=== PATIENT | female | born 1980 | race African-American/Black ===

== ENCOUNTER 2016-12-30 21:21 | Emergency (ER) | payer MEDICAID ==
[~2016-12-30] VITALS: Ht 180.3 cm; Wt 170.1 kg
[~2016-12-30 21:21] MED LIST: ATORVASTATIN CA20 MG ORAL; CLOPIDOGREL75 MG ORAL; FIORICET1 EA ORAL; GABAPENTIN600 MG ORAL; HUMULIN 70100 UNIT/3 SQ; LOSARTAN POTASS25 MG ORAL; NITROFURANTOIN100 M2 ORAL; SOMA350 MG PO
[2016-12-30 21:45] VITALS: BP 117/86
[2016-12-30] MEDS ORDERED: SUMATRIPTAN SU100 MG PO (21:52)
[2016-12-30] MEDS ORDERED: BUTALB-ACETAMI1 EAC3 PO (21:52)
[2016-12-30] MEDS ORDERED: Metoclopramide 10mg/2ml Inj IVP ONE (22:15)
[2016-12-30] MEDS ORDERED: DiphenhydrAMINE 50mg/ml Inj IVP ONE (22:15)
[2016-12-30] MEDS ORDERED: Ketorolac 30mg Inj IV ONE (22:15)
--- NOTE | 2016-12-30 23:48 | Emergency Room Report ---
History of Present Illness General Chief Complaint: Headache Source: Patient Present Illness HPI 36 YO F with known migraines who follows with Neurologist presents with 5 days intermittent right sided headache associated with nausea, photophobia, sensitivity to smell. Neurologist prescribed sumatripthan, usually works, didnt work this week as well. Has had CT and MRI previously which didnt show mass/tumor or other abnormality. Denies fever/chills, neck stiffness, sick contacts or rash. Allergies: Coded Allergies: No Known Allergies (Unverified , 10/17/16) Patient History Past Medical History: migraines Past Surgical History: none Pertinent Family History: none Social History: Denies: alcohol use, drug use, smoking Last Menstrual Period: 12/05/16 Now: No Immunizations: UTD Reviewed Nursing Documentation: PMH: Agreed, PSxH: Agreed Nursing Documentation-PMH Hx Hypertension: Yes Hx Diabetes: Yes Hx Cerebrovascular Accident: Yes - 2014 Review of Systems All Other Systems: negative except mentioned in HPI Physical Exam Vital Signs Date Time Temp Pulse Resp B/P Pulse Ox O2 Delivery O2 Flow Rate FiO2 12/30/16 21:35 97.0 99 17 117/86 98 Room Air Sp02 EP Interpretation: reviewed, normal General Appearance: normal inspection, well appearing, alert, GCS 15, non-toxic , mild distress Head: normocephalic, atraumatic Eyes: bilateral eye EOMI, bilateral eye PERRL ENT: normal ENT inspection, hearing grossly normal, normal voice Neck: normal inspection, full range of motion, supple, no bony tend Respiratory: normal inspection, lungs clear, normal breath sounds, no respiratory distress, no retraction, no wheezing Cardiovascular #1: regular rate, rhythm, no edema Gastrointestinal: normal inspection, normal bowel sounds, non tender, soft, no guarding, no hernia Genitourinary: no CVA tenderness Musculoskeletal: normal inspection, back normal, normal range of motion, Trista' s Sign negative Neurologic: normal inspection, alert, oriented x3, responsive, 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 Afebrile. VSS. No acute neuro focal deficits. Low suspicion for SAH or meningitis given well apperance, duration of symptoms, no meningismus Improved with IV toradol, reglan, benadryl and IVF Will Rx with Reglan Recommend Neuro followup DC home Last Vital Signs Date Time Temp Pulse Resp B/P Pulse Ox O2 Delivery O2 Flow Rate FiO2 12/30/16 22:57 97.0 12/30/16 21:45 76 17 117/86 98 Room Air Status: improved Disposition: HOME, SELF-CARE Referrals: [facility] (PCP) HANNA CRUZ M.D. Dec 30, 2016 23:48
[2016-12-30] MEDS ORDERED: REGLAN10 M1 ORAL (23:57)
[2016-12-31] VITALS: BP 115/83
[2016-12-31 00:10] VITALS: BP 115/83
== END 2016-12-31 00:10 | disposition home or self-care (01) ==
LOC: EMR 21:56
DX: G43.909 Migraine, unspecified, not intractable, without status migrainosus (principal); R11.0 Nausea; H53.149 Visual discomfort, unspecified; I10 Essential (primary) hypertension; E11.9 Type 2 diabetes mellitus without complications
CPT/HCPCS: 96374; 96375; 99284; J1200; J1885; J2765

== ENCOUNTER → 2017-03-05 | Emergency (ER) | payer MEDICAID ==
[~2017-03-05] VITALS: Ht 180.3 cm; Wt 168.3 kg
[~2017-03-05] MED LIST changes: +BUTALB-ACETAMI1 EAC3 PO; +Clindamycin 900mg 50 ML IVPB ONE; +Morphine Sulfate 4mg/ml Inj IVP ONE; +REGLAN10 M1 ORAL; +SUMATRIPTAN SU100 MG PO
--- NOTE | 2017-03-05 23:06 | Emergency Room Report ---
History of Present Illness General Chief Complaint: Edema Source: Patient Present Illness HPI The patient presents with worsening leg edema and pain. She is having difficulty ambulating at this time and is called in to work for 3 days. She started on Lasix by her doctors several days ago. Has not led to a change in the amount of edema that she has. She states that she has a recent diagnosis of kidney dysfunction. The patient denies any fevers, chest pain, shortness of breath, cough, hemoptysis or previous blood clot. The patient states that she's had a stroke in the past and is taking Plavix. The pain is so severe she has missed work for 3 days as she cannot ambulate. Allergies: Coded Allergies: No Known Allergies (Unverified , 10/17/16) Patient History Past Medical History: see triage record Social History: Denies: smoking Social History Narrative employed Last Menstrual Period: 02/09/17 Now: No Reviewed Nursing Documentation: PMH: Agreed, PSxH: Agreed Nursing Documentation-PMH Hx Hypertension: Yes Hx Diabetes: Yes Hx Cerebrovascular Accident: Yes - 2014 Review of Systems All Other Systems: negative except mentioned in HPI Physical Exam Vital Signs Date Time Temp Pulse Resp B/P Pulse Ox O2 Delivery O2 Flow Rate FiO2 03/05/17 22:03 97.3 91 15 133/71 96 Room Air Sp02 EP Interpretation: reviewed, normal General Appearance: well appearing, no apparent distress, GCS 15 Head: normocephalic Eyes: bilateral eye PERRL, bilateral eye normal inspection ENT: moist mucus membranes Neck: supple Respiratory: lungs clear, normal breath sounds Cardiovascular #1: regular rate, rhythm Cardiovascular #2: 2+ radial (R) Gastrointestinal: normal bowel sounds, non tender, soft, overweight Musculoskeletal: digits/nails normal, calf tenderness, inflammation, swelling Neurologic: alert, oriented x3, grossly normal Skin: normal inspection, warm/dry, other - rhinophyma Medical Decision Making Diagnostic Impression: Primary Impression: Edema Qualified Codes: R60.9 - Edema, unspecified Additional Impression: Cellulitis Qualified Codes: L03.119 - Cellulitis of unspecified part of limb ER Course The patient presents with bilateral edema it's painful periods not responding to Lasix. She claims that she has renal failure also. Differential includes deteriorating renal function, cellulitis, DVT amongst others. Laboratory will be undertaken and EKG and chest x-ray also. The patient will be treated with IV Lasix and also given analgesia. Labs are significant for negative d-dimer, normal BNP. Her does have a slightly elevated WBC suggested this might be infectious in etiology. The fact that the patient is unable to ambulate she needs to have hospitalization for treatment and further evaluation as to the etiology of this. The patient was presented to Dr. Jansen who accepted the patient in transfer. The patient is improved however still has pain. She has been diuresing with Lasix we gave her. Addition antibiotics were begun. Laboratory Tests Test 03/05/17 22:20 03/05/17 22:42 Urine HCG, Qualitative Negative Urine Opiates Screen Negative (NEGATIVE) Urine Barbiturates Screen Positive (NEGATIVE) H Phencyclidine (PCP) Screen Negative (NEGATIVE) Urine Amphetamines Screen Negative (NEGATIVE) Urine Benzodiazepines Screen Negative (NEGATIVE) Urine Cocaine Screen Negative (NEGATIVE) Urine Marijuana (THC) Screen Positive (NEGATIVE) H White Blood Count 11.8 K/UL (4.8-10.8) H Red Blood Count 4.40 M/UL (4.20-5.40) Hemoglobin 13.5 G/DL (12.0-16.0) Hematocrit 39.2 % (37.0-47.0) Mean Corpuscular Volume 89 FL (80-99) Mean Corpuscular Hemoglobin 30.7 PG (27.0-31.0) Mean Corpuscular Hemoglobin Concent 34.5 G/DL (32.0-36.0) Red Cell Distribution Width 12.7 % (11.6-14.8) Platelet Count 294 K/UL (150-450) Mean Platelet Volume 7.2 FL (6.5-10.1) Neutrophils (%) (Auto) 38.8 % (45.0-75.0) L Lymphocytes (%) (Auto) 47.2 % (20.0-45.0) H Monocytes (%) (Auto) 4.0 % (1.0-10.0) Eosinophils (%) (Auto) 8.5 % (0.0-3.0) H Basophils (%) (Auto) 1.5 % (0.0-2.0) Prothrombin Time 9.2 SEC (9.30-11.50) L Prothrombin Time INR 0.9 (0.9-1.1) PTT 21 SEC (23-33) L D-Dimer 337 ng/mL (<500) Sodium Level 136 mEQ/L (135-145) Potassium Level 4.7 mEQ/L (3.4-4.9) Chloride Level 96 mEQ/L (98-107) L Carbon Dioxide Level 26 mEQ/L (20-30) Anion Gap 14 (5-15) Blood Urea Nitrogen 13 mg/dL (7-23) Creatinine 1.0 mg/dL (0.5-0.9) H Estimate Glomerular Filtration Rate > 60 mL/min (>60) Glucose Level 194 mg/dL (74-106) H Calcium Level 9.1 mg/dL (8.6-10.2) Total Bilirubin < 0.2 mg/dL (0.0-1.2) Aspartate Amino Transferase (AST) 42 U/L (5-40) H Alanine Aminotransferase (ALT) 18 U/L (3-33) Alkaline Phosphatase 81 U/L (35-104) Total Creatine Kinase 362 U/L (26-140) H Troponin I < 0.30 ng/mL (<=0.30) Pro-B-Type Natriuretic Peptide 53 pg/mL (0-125) Total Protein 7.1 g/dL (6.6-8.7) Albumin 3.5 g/dL (3.5-5.2) Globulin 3.6 g/dL Albumin/Globulin Ratio 0.9 (1.0-2.7) L EKG Diagnostic Results Rate: normal Rhythm: NSR ST Segments: no acute changes Rhythm Strip Diag. Results EP Interpretation: yes Rhythm: NSR, no PVC's, no ectopy Chest X-Ray Diagnostic Results EP Interpretation: Yes Findings: no consolidation, no effusion, no pneumothorax, no acute cardiopulmonary disease Number of Views: 1 Last Vital Signs Date Time Temp Pulse Resp B/P Pulse Ox O2 Delivery O2 Flow Rate FiO2 03/06/17 06:03 98.4 88 19 121/70 98 Room Air Status: improved Disposition: XFER SHT-TRM HOSP Condition: Serious - but stable for transfer Jn Lo M.D. Mar 05, 2017 23:06
[2017-03-05 23:07] LABS: BASOPHILS % (AUTO) 1.5 % (0.0-2.0); EOSINOPHILS % (AUTO) 8.5 % (0.0-3.0); LYMPHOCYTES % (AUTO) 47.2 % (20.0-45.0); MEAN CORPUSCULAR HEMOGLOBIN 30.7 PG (27.0-31.0); MEAN CORPUSCULAR HGB CONC 34.5 G/DL (32.0-36.0); MEAN CORPUSCULAR VOLUME 89 FL (80-99); MEAN PLATELET VOLUME 7.2 FL (6.5-10.1); NEUTROPHILS % (AUTO) 38.8 % (45.0-75.0); PLATELET COUNT 294 K/UL (150-450); RED CELL DISTRIBUTION WIDTH 12.7 % (11.6-14.8); WHITE BLOOD COUNT 11.8 K/UL (4.8-10.8)
[2017-03-05 23:13] LABS: INR 0.9 (0.9-1.1); PROTHROMBIN TIME 9.2 SEC (9.30-11.50)
[2017-03-05 23:24] LABS: TROPONIN I < 0.30 ng/mL (<=0.30)
[2017-03-05 23:35] LABS: ALANINE AMINOTRANSFERASE 18 U/L (3-33); ALBUMIN/GLOBULIN RATIO 0.9 (1.0-2.7); ANION GAP 14 (5-15); ASPARTATE AMINO TRANSFERASE 42 U/L (5-40); CALCIUM 9.1 mg/dL (8.6-10.2); CARBON DIOXIDE 26 mEQ/L (20-30); CHLORIDE 96 mEQ/L (98-107); GLOMERULAR FILTRATION RATE > 60 mL/min (>60); HEMOLYSIS 243; POTASSIUM 4.7 mEQ/L (3.4-4.9); SODIUM 136 mEQ/L (135-145); TOTAL PROTEIN 7.1 g/dL (6.6-8.7)
[2017-03-05 23:53] VITALS: BP 121/65
[2017-03-06 01:48] VITALS: BP 113/76
[2017-03-06 03:40] VITALS: BP 103/53
[2017-03-06 05:06] VITALS: BP 121/70
[2017-03-06 06:03] VITALS: BP 121/70
--- NOTE | 2017-03-07 09:06 | Diagnostic Imaging Report ---
Indication: CP Technique: XRAY CHEST 1 V Comparison: None. Findings: The patient has taken a poor inspiration. The cardiomediastinal silhouette is normal. The lungs are clear. There is no evidence of pleural fluid. The bony structures are unremarkable. Impression: Poor inspiratory chest. Otherwise grossly negative.
--- NOTE | 2017-03-09 00:26 | Cardiology Report ---
APPROVED REPORT EKG Measurement Heart [id number] Normal sinus rhythm Cannot rule out Anterior infarct, age undetermined Abnormal ECG
== END | disposition short-term general hospital (02) ==
LOC: EMR 23:39 → EDBEDREQSVC 03-06 01:52 → EDBEDREQ 03-06 01:52
DX: R60.9 Edema, unspecified (principal); L03.119 Cellulitis of unspecified part of limb; E11.9 Type 2 diabetes mellitus without complications; I10 Essential (primary) hypertension; Z86.73 Personal history of transient ischemic attack (TIA), and cerebral infarction without residual deficits; Z79.02 Long term (current) use of antithrombotics/antiplatelets
CPT/HCPCS: 36415; 71010; 80053; 80300; 81025; 82550; 83880; 84484; 85025; 85379; 85610; 85730; 93005; 96374; 96375; 99284; J1940; J2270; J2405; S0077

== ENCOUNTER 2017-05-03 18:43 | Emergency (ER) | payer MEDICAID ==
[~2017-05-03] VITALS: Ht 177.8 cm; Wt 171.9 kg
[~2017-05-03 18:43] MED LIST changes: -Clindamycin 900mg 50 ML IVPB ONE; -Morphine Sulfate 4mg/ml Inj IVP ONE
[2017-05-03 19:15] VITALS: BP 135/82
[2017-05-03] MEDS ORDERED: DiphenhydrAMINE 50mg/ml Inj IM ONE (19:45)
[2017-05-03] MEDS ORDERED: Ketorolac 30mg Inj IM ONE (19:45)
[2017-05-03] MEDS ORDERED: Metoclopramide 10mg/2ml Inj IM ONE (19:45)
[2017-05-03] MEDS ORDERED: BENADRYL25 MG ORAL (20:21)
[2017-05-03] MEDS ORDERED: AUGMENTIN 500-1 EACH ORAL (20:21)
[2017-05-03] MEDS ORDERED: REGLAN10 MG ORAL (20:21)
[2017-05-03] MEDS ORDERED: IBUPROFEN600 MG ORAL (20:21)
[2017-05-03 20:40] VITALS: BP 111/80
--- NOTE | 2017-05-03 21:53 | Emergency Room Report ---
History of Present Illness General Chief Complaint: Headache Source: Patient Present Illness [facility] The patient is a 37-year-old female presenting for migraine headache and possible dental infection. The patient states that she was treated for a dental infection 1 month prior with amoxicillin. The patient states that dental pain completely resolved after the course of antibiotics. Pain returned one week prior and is described as a 10 out of 10 dull ache to the right lower jaw. Pain does not radiate. It is worse with touch. She states that this pain has triggered a migraine headache which she often has. The patient states that this feels typical of a migraine headache. She admits to photophobia but denies any nausea or vomiting. Headache described as a 10 out of 10 sharp sensation to the right side and does not radiate. No known provoking relieving factors. She has tried Tylenol at home which has not helped. Denies any other symptoms Allergies: Coded Allergies: No Known Allergies (Unverified , 10/17/16) Patient History Past Medical History: see triage record Pertinent Family History: none Last Menstrual Period: 04/12/17 Now: No Reviewed Nursing Documentation: PMH: Agreed, PSxH: Agreed Nursing Documentation-PMH Past Medical History: No History, Except For Hx Hypertension: Yes Hx Diabetes: Yes Hx Cerebrovascular Accident: Yes - multiple Review of Systems All Other Systems: negative except mentioned in HPI Physical Exam Vital Signs Date Time Temp Pulse Resp B/P Pulse Ox O2 Delivery O2 Flow Rate FiO2 05/03/17 19:08 98.4 95 14 96 Room Air 05/03/17 19:15 135/82 Sp02 EP Interpretation: reviewed, normal General Appearance: no apparent distress, alert, GCS 15, non-toxic Head: normocephalic, atraumatic Eyes: bilateral eye PERRL, bilateral eye normal inspection ENT: hearing grossly normal, normal pharynx, no angioedema, normal voice, uvula midline, other - R lower premolar surrounding erythema and TTP. no fluctuance Neck: full range of motion, supple/symm/no masses Respiratory: chest non-tender, lungs clear, normal breath sounds, speaking full sentences Musculoskeletal: back normal, gait/station normal, normal range of motion, non- tender Neurologic: alert, oriented x3, responsive, motor strength/tone normal, sensory intact, speech normal Psychiatric: judgement/insight normal, memory normal, mood/affect normal, no suicidal/homicidal ideation Skin: normal color, no rash, warm/dry, well hydrated Lymphatic: no adenopathy Medical Decision Making PA Attestation Dr. Velázquez is my supervising physician. Patient management was discussed with my supervising physician Diagnostic Impression: Primary Impression: Migraine Qualified Codes: G43.909 - Migraine, unspecified, not intractable, without status migrainosus Additional Impression: Dental infection ER Course The patient is a 37-year-old female presenting for migraine headache and possible dental infection Differential diagnoses include but not limited to Migraine, tension headache, Dental keron, dental abscess, toothache, gingivitis Vitals within normal limits. No apparent distress HEENT exam: Unremarkable except for right lower premolar surrounding erythema and tenderness to palpation. Poor dentition throughout. Uvula midline. The patient is treated with IM Toradol, Benadryl, and Reglan. She states the pain has substantially resided. She'll be discharged home with a prescription for Motrin, Benadryl, Reglan, and Augmentin. She is to follow up with dentist as soon as possible. ER precautions given Last Vital Signs Date Time Temp Pulse Resp B/P Pulse Ox O2 Delivery O2 Flow Rate FiO2 05/03/17 20:40 98.7 87 16 111/80 100 Room Air Status: improved Disposition: HOME, SELF-CARE Condition: Improved Scripts Metoclopramide Hcl* (REGLAN*) 10 Mg Tablet 10 MG ORAL THREE TIMES A DAY, #15 TAB Prov: TERZIAN,KRYSTIAN P.A. 05/03/17 Diphenhydramine Hcl* (BENADRYL*) 25 Mg Capsule 25 MG ORAL Q6H Y for For Pain, #15 CAP Prov: TERZIAN,KRYSTIAN P.A. 05/03/17 Amoxicillin/Potassium Clav 500-125 Tablet* (AUGMENTIN 500-125 TABLET*) 1 Each Tablet 1 TAB ORAL THREE TIMES A DAY, #15 TAB Prov: TERZIAN,KRYSTIAN P.A. 05/03/17 Ibuprofen* (MOTRIN*) 600 Mg Tablet 600 MG ORAL Q8H Y for For Pain, #30 TAB 0 Refills Prov: TERZIAN,KRYSTIAN P.A. 05/03/17 Patient Instructions: Dental Pain, Migraine Headache Additional Instructions: I discussed my findings with the patient. All questions and concerns have been answered. Treatment and medication compliance have been addressed. I advised the patient that they need to follow up with PMD in 3-5 days. Return to ED if symptoms worsen, new symptoms arise, or if needed for any reason. Patient verbalized understanding of discharge instructions. Please follow up with dentist as soon as possible KRYSTIAN COTTO. May 03, 2017 21:53
== END 2017-05-03 20:40 | disposition home or self-care (01) ==
LOC: EMR 20:15
DX: G43.909 Migraine, unspecified, not intractable, without status migrainosus (principal); K04.7 Periapical abscess without sinus; E11.9 Type 2 diabetes mellitus without complications; I10 Essential (primary) hypertension; Z86.73 Personal history of transient ischemic attack (TIA), and cerebral infarction without residual deficits
CPT/HCPCS: 96372; 99284; J1200; J1885; J2765

== ENCOUNTER 2017-12-15 13:09 | Emergency (ER) | payer MEDICAID ==
[~2017-12-15] VITALS: Ht 177.8 cm; Wt 157.9 kg
[~2017-12-15 13:09] MED LIST changes: +AUGMENTIN 500-1 EACH ORAL; +BENADRYL25 MG ORAL; +IBUPROFEN600 MG ORAL; +REGLAN10 MG ORAL
[2017-12-15 13:21] VITALS: BP 136/83
[2017-12-15] MEDS ORDERED: MULTIVITAMINS1 EAC8 ORAL (13:48)
[2017-12-15 14:17] VITALS: BP_SYST 106; BP_SYST 95; BP_DIAS 67; BP_DIAS 73
[2017-12-15 14:18] VITALS: BP 92/67
[2017-12-15] MEDS ORDERED: KENALOG 0.5% CR15 GM APPLIC (14:37)
[2017-12-15 14:42] VITALS: BP 112/73
[2017-12-15 14:43] VITALS: BP 112/73
--- NOTE | 2017-12-16 13:44 | Emergency Room Report ---
History of Present Illness General Chief Complaint: Allergic Reaction Source: Patient Present Illness HPI Patient is a 37 yo female who presented after increased generalized itching and rash. Patient gradual onset of symptoms. Patient stated that she had recently had a bariatric surgery. She denies any fever. She reports having taken Benadryl for itching. She reports having some increased dizziness with standing and some sleepiness. She denies any fever. She denies any chest pain or shortness of breath. Patient reports having some itching predominantly to her trunk and extremities Allergies: Coded Allergies: RANITIDINE (Verified Allergy, Unknown, 12/15/17) Patient History Last Menstrual Period: 11/06/2018 Reviewed Nursing Documentation: PMH: Agreed, PSxH: Agreed Nursing Documentation-PMH Past Medical History: No History, Except For Hx Hypertension: Yes Hx Diabetes: Yes Hx Cerebrovascular Accident: Yes - 2 years ago Review of Systems All Other Systems: negative except mentioned in HPI Physical Exam Vital Signs Date Time Temp Pulse Resp B/P (MAP) Pulse Ox O2 Delivery O2 Flow Rate FiO2 12/15/17 13:13 98.4 110 20 136/83 98 Room Air General Appearance: well appearing, no apparent distress, alert, GCS 15 Head: normocephalic, atraumatic ENT: hearing grossly normal, normal voice Neck: full range of motion, supple Respiratory: no respiratory distress, speaking full sentences Cardiovascular #1: normal inspection, normal peripheral pulses Gastrointestinal: normal inspection, non tender Musculoskeletal: no calf tenderness Neurologic: normal inspection, alert, oriented x3, responsive, 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 Differential diagnosis included was not limited to the allergic reaction, eczema, psoriasis, syphilis among others per. Patient has a benign exam and does not appear to require any further imaging or laboratory testing at this time. Orthostatic vital signs were normal. The patient is given prescription for steroid cream. The patient is advised followup with her surgeon for concerns about recent surgery. The patient shows no increased swelling consistent with DVT. The patient is advised to follow up with primary care doctor in 2-3 days. Patient is advised to return if any worsening condition or if any changes in status that are concerning. This report is dictated with [employer] shredded filler machine wrapper layer software which may occasionally lead to discrepancies related to use of this software. Last Vital Signs Date Time Temp Pulse Resp B/P (MAP) Pulse Ox O2 Delivery O2 Flow Rate FiO2 12/15/17 14:43 98.4 92 20 112/73 98 Room Air Status: improved Disposition: HOME, SELF-CARE Condition: Stable Scripts Triamcinolone Acet (Triamcinolone Acetonide) 15 Gm Cream..g. 15 GM APPLIC Day, #30 GM Prov: Enrico Jernigan 12/15/17 Referrals: [facility] (PCP) Patient Instructions: Eczema Enrico Jernigan Dec 16, 2017 13:44
--- NOTE | 2017-12-26 13:59 | Cardiology Report ---
APPROVED REPORT EKG Measurement Heart [id number] Normal sinus rhythm Cannot rule out Anterior infarct, age undetermined Abnormal ECG
== END 2017-12-15 14:51 | disposition home or self-care (01) ==
LOC: EMR 14:05
DX: L30.9 Dermatitis, unspecified (principal); I10 Essential (primary) hypertension; E11.9 Type 2 diabetes mellitus without complications
CPT/HCPCS: 93005; 99283

== ENCOUNTER 2018-03-19 17:59 | Emergency (ER) | payer MEDICAID, OTHER ==
[~2018-03-19] VITALS: Ht 177.8 cm; Wt 154.2 kg
[~2018-03-19 17:59] MED LIST changes: +KENALOG 0.5% CR15 GM APPLIC; +MULTIVITAMINS1 EAC8 ORAL
[2018-03-19 18:17] VITALS: BP 111/72
[2018-03-19] MEDS ORDERED: ERYTHROMYCIN3.5 GM LEFT EYE (18:22)
[2018-03-19 18:35] VITALS: BP 111/72
--- NOTE | 2018-03-19 19:18 | Emergency Room Report ---
History of Present Illness General Chief Complaint: Eye Problems Source: Patient Present Illness HPI Patient is a 38 old female presenting for left eyelid swelling and pain. Pain is a 4/10 dull ache. Does not radiate. Worse with touch. She also noticed some clear to white discharge from the eye. She denies any changes of vision. She denies any other symptoms Allergies: Coded Allergies: RANITIDINE (Verified Allergy, Unknown, 12/15/17) Patient History Past Medical History: see triage record Pertinent Family History: none Reviewed Nursing Documentation: PMH: Agreed; PSxH: Agreed Nursing Documentation-PMH Past Medical History: No History, Except For Hx Hypertension: Yes Hx Diabetes: Yes Hx Cerebrovascular Accident: Yes - 2 years ago Review of Systems All Other Systems: negative except mentioned in HPI Physical Exam Vital Signs Date Time Temp Pulse Resp B/P (MAP) Pulse Ox O2 Delivery O2 Flow Rate FiO2 03/19/18 18:11 98.5 96 20 111/72 95 Room Air 98.4 Sp02 EP Interpretation: reviewed, normal General Appearance: no apparent distress, alert, GCS 15, non-toxic Head: normocephalic, atraumatic Eyes: left eye lid inflammation; bilateral eye normal inspection, bilateral eye PERRL ENT: hearing grossly normal, normal pharynx, no angioedema, normal voice Musculoskeletal: back normal, gait/station normal, normal range of motion, non- tender Neurologic: alert, oriented x3, responsive, motor strength/tone normal, sensory intact, speech normal Psychiatric: judgement/insight normal, memory normal, mood/affect normal, no suicidal/homicidal ideation Skin: normal color, no rash, warm/dry, well hydrated Medical Decision Making PA Attestation Dr. Lo is my supervising physician. Patient management was discussed with my supervising physician Diagnostic Impression: Primary Impression: Blepharitis of left eye Qualified Codes: H01.004 - Unspecified blepharitis left upper eyelid ER Course Patient is a 38 old female presenting for left eyelid swelling and pain. Differential diagnoses considered but not limited to allergic conjunctivitis, bacterial conjunctivitis, viral conjunctivitis, blepharitis, hordeolum PE: NAD HEENT: Left upper eyelid has edema and erythema. No discharge. No conjunctival injection. PERRL. EOMI The patient will be treated with prescription for ophthalmic erythromycin she was told to use a warm compress. ER precautions given Last Vital Signs Date Time Temp Pulse Resp B/P (MAP) Pulse Ox O2 Delivery O2 Flow Rate FiO2 03/19/18 18:35 98.4 20 111/72 95 Room Air 98.4 03/19/18 18:11 96 Status: improved Disposition: HOME, SELF-CARE Condition: Improved Scripts Erythromycin Base (ERYTHROMYCIN*) 3.5 Gm Oint...g. 1 APPLIC LEFT EYE QID for 14 Days, #3.5 GM 0 Refills Prov: KRYSTIAN COTTO 03/19/18 Patient Instructions: Blepharitis Additional Instructions: I discussed my findings with the patient. All questions and concerns have been answered. Treatment and medication compliance have been addressed. I advised the patient that they need to follow up with PMD in 3-5 days. Return to ED if symptoms worsen, new symptoms arise, or if needed for any reason. Patient verbalized understanding of discharge instructions. KRYSTIAN COTTO Mar 19, 2018 19:18
== END 2018-03-19 18:45 | disposition home or self-care (01) ==
LOC: EMR 18:45
DX: H01.004 Unspecified blepharitis left upper eyelid (principal); I10 Essential (primary) hypertension; E11.9 Type 2 diabetes mellitus without complications; Z88.8 Allergy status to other drugs, medicaments and biological substances; Z86.73 Personal history of transient ischemic attack (TIA), and cerebral infarction without residual deficits
CPT/HCPCS: 99283

== ENCOUNTER 2019-07-20 22:06 | Emergency (ER) | payer OTHER ==
[~2019-07-20] VITALS: Ht 180.3 cm; Wt 153.3 kg
[~2019-07-20 22:06] MED LIST changes: +ERYTHROMYCIN3.5 GM LEFT EYE
--- NOTE | 2019-07-20 22:35 | NUR ---
ED Nurse Note: PATIENT AMBULATED TO ED WITH C/O HEADACHE AND LEFT SIDE TOOTHACHE X 2 DAYS. AAO X4, VSS AT THIS TIME.
[2019-07-20 22:45] VITALS: BP 122/71
--- NOTE | 2019-07-20 22:51 | Emergency Room Report ---
History of Present Illness General Chief Complaint: Toothache Source: Patient Present Illness HPI Disclaimer: Please note that this report is being documented using [employer] technology. This can lead to erroneous entry secondary to incorrect interpretation by the dictating instrument. HPI: 31-year-old female history of multiple dental caries and tooth avulsions presents for evaluation of toothache. Patient bit into a piece of chicken approximately 2 days ago and felt a tooth break in the back left molar. She notes worsening pain causing a left-sided headaches. She denies any vision changes, ataxia, confusion with these headaches. Complaining of gum pain recently and swelling of the lower jaw over the previously avulsed tooth areas. She has multiple other fractures that she states she has not yet seen a dentist for. She recently moved here from [place] and has no follow-up for dentistry. She denies any fevers, chills, throat tightness, wheezing, difficulty breathing, chest pain, abdominal pain vomiting or diarrhea. PMH: Multiple dental caries PSH: Previous dental procedures Allergies: Allergy to ranitidine noted in medical chart Social Hx: Denies drug or alcohol abuse Allergies: Coded Allergies: RANITIDINE (Verified Allergy, Unknown, 12/15/17) Patient History Last Menstrual Period: 07/05/19 Now: No Nursing Documentation-PMH Past Medical History: No History, Except For Hx Hypertension: Yes Hx Diabetes: Yes Hx Cerebrovascular Accident: Yes - 2 years ago Review of Systems All Other Systems: negative except mentioned in HPI Physical Exam Vital Signs Date Time Temp Pulse Resp B/P (MAP) Pulse Ox O2 Delivery O2 Flow Rate FiO2 07/20/19 22:13 98.2 76 14 122/71 (88) 100 Room Air General: Awake and alert, no acute distress HEENT: NC/AT. EOMI. tooth #19 is avulsed with some surrounding erythema, no drainage. Tooth #18 is fractured tender to palpation. There is yellow pulp exposed. Multiple other areas with dental caries and partial fractures versus avulsions. Neck: Supple, trachea midline. No lymphadenopathy Resp: Normal work of breathing. No cough, wheezing or crackles appreciated Skin: Intact. No abrasions, laceration or rash over the exposed skin MSK: Normal tone and bulk. Moving all extremities. No obvious deformity. Neuro: Awake and alert. Mentating appropriately. Medical Decision Making Diagnostic Impression: Primary Impression: Adballa type II Additional Impressions: Dental infection Avulsed tooth ER Course 39-year-old female presents for evaluation of worsening tooth pain found to have an Abdalla 2 fracture of tooth #18 and multiple areas with avulsed teeth and possible gingival infection. The patient declined nerve block in the emergency department. Unfortunately, we do not have any calcium oxide paste to cover the fractured tooth. She will require close dental follow-up and several clinics in the area where given in her discharge paperwork. She will be discharged on NSAIDs and Augmentin. Emphasized how quickly she needed to follow-up with a dentist. She understands and agrees with this treatment plan was discharged home. Last Vital Signs Date Time Temp Pulse Resp B/P (MAP) Pulse Ox O2 Delivery O2 Flow Rate FiO2 07/20/19 22:13 98.2 76 14 122/71 (88) 100 Room Air Disposition: HOME, SELF-CARE Condition: Stable Scripts Amoxicillin/Potassium Clav 875-125* (AUGMENTIN 875-125 TABLET*) 1 Each Tablet 1 TAB ORAL TWICE A DAY for 7 Days, #14 TAB Prov: Joaquín Mcclelland MD 07/20/19 Joaquín Mcclelland MD Jul 20, 2019 22:51
[2019-07-20] MEDS ORDERED: AUGMENTIN 875-1 EAC1 ORAL (22:57)
[2019-07-20 23:14] VITALS: BP 122/71
--- NOTE | 2019-07-20 23:15 | NUR ---
ED Nurse Note: Pt cleared by health care Provider for discharge. DC instructions/prescription was given and explained to pt and verbalized understanding of teachings. All medical deviecs such as ID band removed. Pt is AAO x4, ambulatory and left with all personal belongings.
== END 2019-07-20 23:15 | disposition home or self-care (01) ==
LOC: EMR 22:50
DX: S03.2XXA Dislocation of tooth, initial encounter (principal); X58.XXXA Exposure to other specified factors, initial encounter; Y92.9 Unspecified place or not applicable; K02.9 Dental caries, unspecified; E11.9 Type 2 diabetes mellitus without complications; I10 Essential (primary) hypertension; Z86.73 Personal history of transient ischemic attack (TIA), and cerebral infarction without residual deficits
CPT/HCPCS: 99282